=== PATIENT | male | born 1975 | race Two or more races ===

== ENCOUNTER → 2021-01-19 | Emergency (ER) | payer OTHER ==
[~2021-01-19] VITALS: Ht 182.9 cm; Wt 72.6 kg
[~2021-01-19] MED LIST: BENADRYL ALLERG25 MG PO
== END | disposition home or self-care (01) ==
LOC: ER 16:36
DX: S99.822A Other specified injuries of left foot, initial encounter (principal); W56.59XA Other contact with other fish, initial encounter; Y93.01 Activity, walking, marching and hiking; Y92.832 Beach as the place of occurrence of the external cause; Y99.8 Other external cause status

== ENCOUNTER 2021-02-20 08:56 | Outpatient (CLI) | payer OTHER | END 2021-02-20 09:02 | disposition home or self-care (01) | LOC: RAD 08:56 | PROVIDERS: ATTEND Orthopaedic Surgery | DX: M25.521 Pain in right elbow (principal) ==

== ENCOUNTER 2021-10-17 16:04 | Outpatient (CLI) | payer OTHER | END 2021-10-17 16:10 | disposition home or self-care (01) | LOC: RAD 16:04 | PROVIDERS: ATTEND Orthopaedic Surgery | DX: M25.521 Pain in right elbow (principal) ==